=== PATIENT | male | born 1985 | race Caucasian/White ===

== ENCOUNTER → 2017-03-09 | Outpatient (CLI) | payer OTHER ==
[~2017-03-09] MED LIST: GADOBUTROL 10 ML VIAL IVP ONE
== END ==
LOC: FIMAGING 09:32
PROVIDERS: ATTEND Internal Medicine Infectious Disease
DX: R20.0 Anesthesia of skin (principal); G51.0 Bell's palsy; R41.3 Other amnesia
CPT/HCPCS: A9585

== ENCOUNTER 2017-11-20 10:39 | Emergency (ER) | payer OTHER ==
[2017-11-20 11:51] LABS: PLATELET COUNT 207 10^3/uL (150-400)
--- NOTE | 2017-11-20 12:45 | EDPHY ---
H & P Stated Complaint: syncope yesterday post hot bath/hit r side of head/mild shane Time Seen by Provider: 11/20/17 11:26 HPI/ROS: CHIEF COMPLAINT: Syncope 3 days ago, headache HISTORY OF PRESENT ILLNESS: This is a 32-year-old male states that about a week ago he became ill with an upper respiratory infection. He has had a runny nose and congestion. 3 days ago he took a hot bath for box mentally and our an attempt to feel better. When he stood out of the bathtub the felt lightheaded and dizzy, he managed to step out of the bathtub but then had a syncopal episode. He struck the right temporal area. No prolonged loss of consciousness. His heard him fall. Next tape felt relatively well except for the upper respiratory infection. However by the evening and yesterday he developed a right-sided headache, some ringing in his ears, and some difficulty concentrating. He has had no further syncopal episodes. Has no chest pain or shortness of breath. No palpitations. No cardiac history. He is concerned regarding the head injury from 3 days ago and the recently developed headache. No fevers. REVIEW OF SYSTEMS: A comprehensive 10 system review of systems was reviewed and is otherwise negative aside from elements mentioned in the history of present illness. PAST MEDICAL HISTORY: Eosinophilic esophagitis. SOCIAL HISTORY: Nonsmoker. Here with his . VITAL SIGNS Reviewed by me. GENERAL: Well-developed, well-nourished, alert, oriented. Rates his headache as 2/10. HEENT: Atraumatic. Indicates the area of tenderness in the right christian. No swelling, ecchymosis, or abrasion noted. Pupils equal round reactive to light. Extraocular movements are intact. No sinus tenderness to percussion. Tympanic membranes are clear bilaterally. Mouth moist mucous membranes. Pharynx slight erythema but no exudates, tonsillar enlargement, or uvular deviation. Neck is supple with no adenopathy. No tenderness to palpation. LUNGS: Clear to auscultation bilaterally, no wheezes, rhonchi or rales. CARDIAC: Regular rate and rhythm, no rubs, murmurs or gallops. ABDOMEN: Soft, nontender, nondistended, bowel sounds normal. BACK: No CVA tenderness. EXTREMITIES: No trauma. No edema. Range of motion is normal throughout. NEURO: Alert and oriented, cranial nerves 2-12 intact. Motor strength 5/5 throughout. Sensation intact to light touch. SKIN: Warm and dry, no rash. PSYCHIATRIC: Normal mentation, no agitation. - Personal History Current Tetanus Diphtheria and Acellular Pertussis (TDAP): Yes - Medical/Surgical History Hx Asthma: No Hx Chronic Respiratory Disease: No Hx Diabetes: No Hx Cardiac Disease: No Hx Renal Disease: No Hx Cirrhosis: No Hx Alcoholism: No Hx HIV/AIDS: No Hx Splenectomy or Spleen Trauma: No Other PMH: eosyinphilic esophagitis - Social History Smoking Status: Never smoked Constitutional: Initial Vital Signs Temperature (C) 36.9 C 11/20/17 10:45 Heart Rate 74 11/20/17 10:45 Respiratory Rate 18 11/20/17 10:45 Blood Pressure 121/82 H 11/20/17 10:45 O2 Sat (%) 94 11/20/17 10:45 O2 Delivery Mode Room Air Allergies/Adverse Reactions: Penicillins Allergy (Verified 11/20/17 10:44) Home Medications: Medication Instructions Recorded Flovent 110 MCG Hfa MDI (*) 11/20/17 Fluconazole 11/20/17 Sulfamethox/Tmp 800/160 mg 1 tab PO BID #14 tab 11/20/17 [Bactrim Ds] Medical Decision Making - Diagnostics EKG Interpretation: 12-LEAD EKG: Please see the full report in [facility]. My interpretation: Sinus rhythm, slight ST elevation throughout, consistent with J-point elevation Imaging Results: CT head Impression: 1. Severe pansinusitis. 2. No skull fracture. 3. No epidural or subdural hematoma. Findings and recommendations discussed with Emergency Department physician, Dr. Colette Yanes at 1242 hours on November 20, 2017. Final report concurs with initial preliminary interpretation. Dictated By: Harley Pearce Imaging: Discussed imaging studies w/ paragliding instructor Radiologist ED Course/Re-evaluation: 32-year-old male with a syncopal episode 3 days ago now with a headache and ringing in his ears and feeling confused. He has also had upper respiratory infection for several days. EKG: Sinus rhythm, no evidence for Brugada, no long QT. Laboratory largely unremarkable. CT scan the head demonstrates wu sinusitis but no intracranial injury or acute traumatic findings. Patient placed on Bactrim for sinusitis. He was advised to use Tylenol or ibuprofen for any residual headache discomfort. He was also given information regarding sinusitis and encouraged to use decongestants and Flonase. He will follow up with ENT. Differential Diagnosis: Differential diagnosis of the patient's syncope was considered including but not limited to vasovagal syncope, arrhythmia, dehydration, and blood loss. After history was obtained, and the physical exam performed, a differential for headache was considered including, but not limited to, close head injury, skull fracture, contusion, subarachnoid hemorrhage, migraine headache, tension headache and infectious causes such as meningitis, sinusitis, encephalitis. - Data Points Laboratory Results: Laboratory Results 11/20/17 11:45 11/20/17 11:45 Point of Care Test Results: Chemistry 11/20/17 12:28 POC Troponin I 0.00 ng/mL ng/mL (0.00-0.08) Departure - Departure Disposition: Home, Routine, Self-Care Clinical Impression: Syncope Qualifiers: Syncope type: vasovagal syncope Qualified Code(s): R55 - Syncope and collapse Upper respiratory infection Qualifiers: URI type: unspecified viral URI Qualified Code(s): J06.9 - Acute upper respiratory infection, unspecified Sinusitis Qualifiers: Sinusitis location: unspecified location Chronicity: acute Recurrence: non- recurrent Qualified Code(s): J01.90 - Acute sinusitis, unspecified Head injury Qualifiers: Encounter type: initial encounter Qualified Code(s): S09.90XA - Unspecified injury of head, initial encounter Condition: Good Instructions: Sinusitis (ED), Syncope (ED), Head Injury (ED) Additional Instructions: You been given a prescription of Bactrim to treat your sinusitis. Please take this as directed. Please obtained Flonase nasal spray. This is available [id number]. Use as directed. Sinusitis will not clear significantly without the use of decongestants. Please obtain a [id number] decongestant such as Sudafed. Drink plenty of fluid with this decongestant. Decongestants may keep her awake at night. If you are unable to sleep secondary to nasal congestion, consider trying Afrin nasal spray. Do not use Afrin for more than 3 days. Please take Tylenol or ibuprofen for headache pain and facial pain. Mainstay of therapy will be to drink plenty of fluids, control your symptoms with [id number] medications, and get plenty of rest. Return to the emergency department or seek care urgently if you're symptoms are worsening despite the above treatment, if you develop shortness of breath, if you're unable to drink fluids secondary to throat pain or other issues, if you developed, vomiting, diarrhea, or other concerns. Regarding the fainting, think this is most likely related to vasovagal syncope. Please stay well-hydrated. Please follow up with your primary care physician especially if you're having recurrent episodes of fainting. Referrals: Brooks Ye MD [Primary Care Provider] - As per Instructions Prescriptions: Sulfamethox/Tmp 800/160 mg [Bactrim Ds] 1 tab PO BID #14 tab
[2017-11-20 13:37] VITALS: BP 114/76
--- NOTE | 2017-11-20 19:57 | CPEKG ---
Test Reason : OPEN Blood Pressure : / mmHG Vent. Rate : 060 BPM Atrial Rate : 060 BPM P-R Int : 168 ms QRS Dur : 103 ms QT Int : 427 ms P-R-T Axes : 025 105 054 degrees QTc Int : 427 ms Sinus rhythm Left posterior fascicular block ST elev, probable normal early repol pattern Confirmed by Colette Yanes ([id number]) on 11/20/2017 7:57:16 PM Referred By: Confirmed By:Colette Yanes
== END 2017-11-20 13:37 | disposition home or self-care (01) ==
DX: R55 Syncope and collapse (principal); J01.90 Acute sinusitis, unspecified; J06.9 Acute upper respiratory infection, unspecified; S09.90XA Unspecified injury of head, initial encounter; W19.XXXA Unspecified fall, initial encounter; Y93.E1 Activity, personal bathing and showering; Y92.019 Unspecified place in single-family (private) house as the place of occurrence of the external cause; Y99.8 Other external cause status
CPT/HCPCS: 84484-PO

== ENCOUNTER → 2018-05-16 | Outpatient (CLI) | payer OTHER | LOC: FCPNEURO 21:00 | PROVIDERS: ATTEND Student in an Organized Health Care Education/Training Program | DX: G47.33 Obstructive sleep apnea (adult) (pediatric) (principal) ==